=== PATIENT | male | born 1970 | race African-American/Black ===

== ENCOUNTER 2017-04-14 14:36 | Emergency (ER) | payer OTHER ==
[2017-04-14 14:53] VITALS: TEMP 98; BMI 38.6
--- NOTE | 2017-04-14 15:08 | PDOC ---
History of Present Illness - General Chief Complaint: Pain Stated Complaint: NUMBNES Time Seen by Provider: 04/14/17 14:41 History Source: Patient Exam Limitations: No Limitations - History of Present Illness Initial Comments: 04/14/17 15:02 Patient is a 47M with history of palpitations (seen a year ago, said he was given a medication after workup and hasn't had symptoms since) here today via EMS complaining of bilateral arm cramping. The cramping started today at work while he was typing. He had one other prior episode of the cramping when his was driving. He denies shortness of breath, chest pain, abdominal pain, headache and neck pain. He denies fevers, chills, nausea and vomiting. He says that the pain has almost resolved since he called 911. Sent in by his workplace for clearance. Past History - Past Medical History Allergies/Adverse Reactions: Allergies Allergy/AdvReac Type Severity Reaction Status Date / Time No Known Allergies Allergy Verified 04/14/17 14:54 Home Medications: Ambulatory Orders NK [No Known Home Medication] 04/14/17 Other medical history: DENIES. - Surgical History Abdominal Surgery: Yes (HERNIA.) - Suicide/Smoking/Psychosocial Hx Smoking History: Never smoked Hx Alcohol Use: No Drug/Substance Use Hx: No Review of Systems - Review of Systems Comments:: 04/14/17 15:04 GENERAL/CONSTITUTIONAL: No fever or chills. No weakness. HEAD, EYES, EARS, NOSE AND THROAT: No change in vision. No sore throat. CARDIOVASCULAR: No chest pain or shortness of breath RESPIRATORY: No cough, wheezing, or hemoptysis. GASTROINTESTINAL: No nausea, vomiting, diarrhea or constipation. GENITOURINARY: No dysuria, frequency, or change in urination. MUSCULOSKELETAL: Positive for arm pain. No neck or back pain. SKIN: No rash NEUROLOGIC: No headache, vertigo, loss of consciousness, or change in strength/ sensation. ENDOCRINE: No increased thirst. No abnormal weight change ALLERGIC/IMMUNOLOGIC: No hives or skin allergy. *Physical Exam - Vital Signs Last Vital Signs Temp Pulse Resp BP Pulse Ox 98 F 88 18 154/93 99 04/14/17 14:44 04/14/17 14:44 04/14/17 14:44 04/14/17 14:44 04/14/17 14:44 - Physical Exam Comments: 04/14/17 15:08 GENERAL: Awake, alert, and fully oriented, in no acute distress HEAD: No signs of trauma, normocephalic, atraumatic EYES: PERRLA, EOMI, sclera anicteric, conjunctiva clear ENT: Auricles normal inspection, hearing grossly normal, nares patent, oropharynx clear without exudates. Moist mucosa NECK: Normal ROM, supple, no lymphadenopathy, JVD, or masses LUNGS: No distress, speaks full sentences, clear to auscultation bilaterally HEART: Regular rate and rhythm, normal S1 and S2, no murmurs, rubs or gallops, peripheral pulses normal and equal bilaterally. ABDOMEN: Soft, nontender, normoactive bowel sounds. No guarding, no rebound. No masses EXTREMITIES: Normal inspection, Normal range of motion, no edema. No clubbing or cyanosis. Normal range of motion. Nontender. No signs of trauma. NEUROLOGICAL: Cranial nerves II through XII grossly intact. Normal speech, normal gait, no focal sensorimotor deficits SKIN: Warm, Dry, normal turgor, no rashes or lesions noted. ED Treatment Course - LABORATORY CBC & Chemistry Diagram: 04/14/17 15:35 04/14/17 15:35 Medical Decision Making - Medical Decision Making 04/14/17 15:10 47 with history of palpitations here today complaining of arm pain. Vital signs stable and normal. Pain has nearly resolved. Will evaluate with cbc, cmp and ekg. Will treat fluids and mag. No pain with axial loading. Most likely msk pain. 04/14/17 15:29 EKG shows normal sinus rhythm, normal rate, normal rhythm. aVL>11, LVH. No st elevations, no contiguous t-wave inversions, no st depressions. 04/14/17 16:35 Laboratory Tests 04/14/17 15:35 WBC 7.2 Hgb 14.7 Hct 43.9 Plt Count 225 CBC normal. CMP normal. Will discharge with PCP follow up. *DC/Admit/Observation/Transfer Diagnosis at time of Disposition: Pain of upper extremity Qualifiers: Laterality: bilateral Qualified Code(s): M79.601 - Pain in right arm; M79.601 - Pain in right arm; M79.602 - Pain in left arm; M79.602 - Pain in left arm - Discharge Dispostion Disposition: HOME Condition at time of disposition: Good Admit: No - Referrals Referrals: Amanda Neri MD [Primary Care Provider] - - Patient Instructions Printed Discharge Instructions: DI for Arm Pain
[2017-04-14] MEDS ORDERED: SODIUM CHLORIDE 1,000 ML IV STA (15:12)
--- NOTE | 2017-04-14 15:34 | PDOC ---
Attending Attestation - HPI HPI: 04/14/17 15:36 The patient is a 47 year old male with history of hypertension BIBEMS for bilateral upper extremity cramping that began today at work. - Physicial Exam PE: 04/14/17 15:37 GENERAL: Awake, alert, and fully oriented, in no acute distress HEAD: No signs of trauma EYES: PERRLA, EOMI, sclera anicteric, conjunctiva clear ENT: Auricles normal inspection, hearing grossly normal, nares patent, oropharynx clear without exudates. Moist mucosa NECK: Normal ROM, supple, no lymphadenopathy, JVD, or masses. No cervical spine tenderness. LUNGS: Breath sounds equal, clear to auscultation bilaterally. No wheezes, and no crackles HEART: Regular rate and rhythm, normal S1 and S2, no murmurs, rubs or gallops ABDOMEN: Soft, nontender, normoactive bowel sounds. No guarding, no rebound. No masses EXTREMITIES: Normal range of motion, no edema. No clubbing or cyanosis. No cords, erythema. Palpation of the b/l forearms improves pain. NEUROLOGICAL: Cranial nerves II through XII grossly intact. Normal speech, normal gait. Median, ulnar, radian nerves intact. SKIN: Warm, Dry, normal turgor, no rashes or lesions noted. - Medical Decision Making 04/14/17 15:47 Documentation prepared by Opal Rodriguez, acting as medical sales for Narciso Malik MD. <Opal Rodriguez - Last Filed: 04/14/17 15:36> - Resident Resident Name: Cristian See - ED Attending Attestation I have performed the following: I have examined & evaluated the patient, The case was reviewed & discussed with the resident, I agree w/resident's findings & plan, Exceptions are as noted - Medical Decision Making 04/14/17 15:29 A portion of this note was written by my scribe, under my supervision. Vital Signs Temp Pulse Resp BP Pulse Ox 98 F 88 18 154/93 99 04/14/17 14:44 04/14/17 14:44 04/14/17 14:44 04/14/17 14:44 04/14/17 14:44 47-year-old male with questionable cardiac, atrophic relation history presents with bilateral forearm cramping since yesterday. Patient reports intermittent episodes in the last several days. Denies nausea, vomiting, chest pain, short of breath, neck pain or other neurological symptoms. I suspect this is likely muscle skeletal. I am not concerned with cervical pathology. Patient has no axial loading pain. We'll obtain labs include electrolytes to rule out metabolic disarray. Workup is negative, will have patient discharged with PMD follow-up. 04/14/17 16:42 CBC, BMP 04/14/17 15:35 04/14/17 15:35 CMP Sodium 141 mmol/L (136-145) 04/14/17 15:35 Potassium 4.1 mmol/L (3.5-5.1) 04/14/17 15:35 Chloride 104 mmol/L (98-107) 04/14/17 15:35 Carbon Dioxide 28 mmol/L (21-32) 04/14/17 15:35 Anion Gap 9 (8-16) 04/14/17 15:35 BUN 13 mg/dL (7-18) 04/14/17 15:35 Creatinine 1.1 mg/dL (0.7-1.3) 04/14/17 15:35 Creat Clearance w eGFR > 60 (>60) 04/14/17 15:35 Random Glucose 102 mg/dL (74-106) 04/14/17 15:35 Calcium 9.1 mg/dL (8.5-10.1) 04/14/17 15:35 Magnesium 2.1 mg/dL (1.8-2.4) 04/14/17 15:35 Total Bilirubin 0.6 mg/dL (0.2-1.0) 04/14/17 15:35 AST 21 U/L (15-37) 04/14/17 15:35 ALT 27 U/L (12-78) 04/14/17 15:35 Alkaline Phosphatase 74 U/L (45-117) 04/14/17 15:35 Total Protein 7.0 g/dl (6.4-8.2) 04/14/17 15:35 Albumin 3.7 g/dl (3.4-5.0) 04/14/17 15:35 <Narciso Malik - Last Filed: 04/14/17 16:42>
[2017-04-14 15:53] LABS: BASOPHIL 0.9 % (0-2.0); MCH 27.8 pg (25.7-33.7); MCHC 33.5 g/dl (32.0-35.9); MEAN CELL VOLUME 83.1 fl (80-96); MEAN PLT VOLUME 8.3 fl (7.5-11.1); PLATELET COUNT 225 K/MM3 (134-434); RDW 14.5 % (11.9-15.9); WHITE BLOOD COUNT 7.2 K/mm3 (4.0-10.0)
[2017-04-14 16:23] LABS: ALBUMIN 3.7 g/dl (3.4-5.0); ANION GAP 9 (8-16); BILIRUBIN,TOTAL 0.6 mg/dL (0.2-1.0); CALCIUM 9.1 mg/dL (8.5-10.1); CO2 28 mmol/L (21-32); CREATININE 1.1 mg/dL (0.7-1.3); GLUCOSE,RANDOM 102 mg/dL (74-106); MAGNESIUM 2.1 mg/dL (1.8-2.4); SGOT/AST 21 U/L (15-37); SGPT/ALT 27 U/L (12-78)
[2017-04-14 16:24] LABS: ALK PHOS 74 U/L (45-117)
[2017-04-14 16:57] VITALS: BP 156/78; PULSE 85
--- NOTE | 2017-04-15 09:37 | EKG ---
Test Reason : Blood Pressure : / mmHG Vent. Rate : 085 BPM Atrial Rate : 085 BPM P-R Int : 178 ms QRS Dur : 098 ms QT Int : 342 ms P-R-T Axes : 033 -11 007 degrees QTc Int : 406 ms NORMAL SINUS RHYTHM MODERATE VOLTAGE CRITERIA FOR LVH, MAY BE NORMAL VARIANT BORDERLINE ECG NO PREVIOUS ECGS AVAILABLE Confirmed by NATHALIA HIGGINBOTHAM MD ([id number]) on 04/15/2017 9:37:05 AM Referred By: Confirmed By:NATHALIA HIGGINBOTHAM MD
== END 2017-04-14 16:57 | disposition home or self-care (01) ==
LOC: JER 14:36
PROC: 3E0337Z Introduction of Electrolytic and Water Balance Substance into Peripheral Vein, Percutaneous Approach (ICD-10-PCS; principal; 2017-04-14)
DX: M79.602 Pain in left arm (principal); M79.601 Pain in right arm; X50.3XXA Overexertion from repetitive movements, initial encounter; Y93.C1 Activity, computer keyboarding; Y92.89 Other specified places as the place of occurrence of the external cause; Y99.0 Civilian activity done for income or pay
CPT/HCPCS: 36415; 80053; 83735; 85025; 93005; 93010; 99285-25